=== PATIENT | female | born 1990 | race African-American/Black ===

== ENCOUNTER 2019-01-08 10:26 | Emergency (ER) | payer OTHER ==
[~2019-01-08] VITALS: Ht 162.6 cm; Wt 113.4 kg
[~2019-01-08 10:26] MED LIST: IBUPROFEN 800800 M1 PO; NORCO 5-325 TA1 EACH PO
[2019-01-08] MEDS ORDERED: LIDOCAINE VISC100 ML SWISH&SPIT (10:48)
[2019-01-08] MEDS ORDERED: AMOXICILLIN 50500 MG PO (10:48)
[2019-01-08] MEDS ORDERED: ACETAMINOPHEN-1 EAC1 PO (11:14)
[2019-01-08 11:28] VITALS: BP 145/98
== END 2019-01-08 11:32 | disposition home or self-care (01) ==
LOC: M.ERS 10:26
DX: K08.89 Other specified disorders of teeth and supporting structures (principal)